=== PATIENT | female | born 2000 | race Caucasian/White ===

== ENCOUNTER → 2020-06-26 | Outpatient (CLI) | payer OTHER ==
[~2020-06-26] VITALS: Ht 177.8 cm; Wt 71.7 kg
[~2020-06-26] MED LIST: DICLOFENAC SODI75 MG PO; NABUMETONE 500500 M2 PO; PROVENTIL HFA6.7 G1 INH; SPRINTEC1 EACH PO; SYMBICORT80 MCG/4.1 INH
--- NOTE | ~2020-06-26 | HPC ---
[facility] [place] [address] PAIN MANAGEMENT CONSULTATION Name: MITCH NARANJO Room #: REG FLORA NunesDella#: [id number] Admission: 06/26/20 Attend Phys: Nathan Colunga DO Discharge: Date of : 00 Report #: [id number] THIS REPORT FOR: cc: Beryl Brewer,Nathan De DO ~ CC: Beryl Colunga DATE OF SERVICE: 06/27/2020 CHIEF COMPLAINT: Left low back pain. HISTORY OF PRESENT ILLNESS: As you know, the patient is a very pleasant 19-year-old female who reports acute onset of low back pain that presented on 06/03/2020. The patient indicates pain intensified from that point forward. 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 She states that her pain is exacerbated with activities during the game specifically with extension of the lumbar spine. She reports that she was placed on rest after she was found to have had a pars interarticularis fracture on imaging study. There was flexion extension films performed, which showed no pathologic movement. She was advised by her orthopedic surgeon to utilize a conservative approach and was placed in a bracing system. She was apparently doing very well after being in the bracing system and with some rest and relaxation. She came out of the bracing system and went right back to her activities and her symptoms reoccurred. She sought evaluation through Neurosurgery, who advised no surgical options at this time. She was sent to our clinic to discuss treatment options. The patient reports her pain today is constant with intermittent exacerbations of symptoms. She describes the pain as shooting, aching, and sharp. She places current pain score 3/10, daily average at 6/10, worst the pain has been is 9/10. The patient states that pain is exacerbated with lumbar extension, improves with lying down, bracing and rest. She has been referred to our service to discuss treatment options to address a nondisplaced pars interarticularis fracture at L5-S1. PAST MEDICAL HISTORY: Asthma. PAST SURGICAL HISTORY: 1. Sclerotherapy 2008, repeat 2010, repeat 2016. 2. Adenoidectomy. SOCIAL HISTORY: The patient denies tobacco, alcohol, IV or illicit drug use. 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 She is accompanied by her mother present in room today. She is not in litigation in regards to pain. [place] [id number] PAIN MANAGEMENT CONSULTATION Name: MITCH NARANJO Room #: REG FLORA TompkinsDellaRileyDella#: [id number] Admission: 06/26/20 Attend Phys: Nathan Colunga DO Discharge: Date of : 00 Report #: [id number] receiving any disability income. REVIEW OF SYSTEMS: Positive for feeling of weakness, wearing corrective eyewear, asthma, wheezing, intermittent numbness and tingling. All other review of systems negative per 12-point review of systems other than those listed in history of present illness. Pain impact score 18/70 indicating mild interference of daily activities secondary to pain. ALLERGIES: No reported drug allergies. CURRENT MEDICATIONS: Albuterol 2 puffs q. 4 hours p.r.n., Sprintec 1 tab per day, Symbicort 80/4.5 mcg inhaled twice daily, nabumetone 500 mg 3 times a day. IMAGING: MRI of the lumbar spine obtained 03/09/2018 shows L1-L2 unremarkable, L2-L3 unremarkable, L3-L4 unremarkable, L4-L5 unremarkable, L5-S1 shows a pars interarticularis fracture on the left with edema and stress reaction. X-ray of the lumbar spine obtained 06/01/2020 shows flexion extension films. There is very mild retrolisthesis of L2 on L3, L3 on L4 and L4 on L5 only in extension. There is no evidence of fracture or abnormal movement. PHYSICAL EXAMINATION: VITAL SIGNS: Blood pressure 114/71, pulse 61, respiratory rate 14 and unlabored. The patient is 100% on room air. Height 5 feet 10 inches tall, weight 158 pounds, BMI calculated 22.7. GENERAL: Well-developed, well-nourished, well-hydrated 19-year-old female appearing stated age. She is in no acute distress, awake, alert and oriented x 3. Current pain score is rated at 3-6/10 depending on activity. HEENT: Normocephalic, atraumatic. Pupils equal, round and reactive to light. Extraocular muscles are intact. Sclerae nonicteric without injection. NEUROLOGIC: Speech is fluent. LUNGS: Clear, no wheeze, rhonchi or rales. CARDIOVASCULAR: Regular. No appreciable gallop, no rub. ABDOMEN: Soft, nontender, nondistended, normoactive bowel sounds. EXTREMITIES: Show no clubbing, no cyanosis, and no edema. MUSCULOSKELETAL: Lower extremity strength equal and symmetrical 5/5, intact to light touch from L1 through S2 dermatomes. Seated straight leg raising negative. Supine straight leg raising negative. Juventino's test is negative. Modified Gaenslen's positive for some axial low back pain with extension. Ankle clonus negative. Babinski is negative. Deep tendon reflexes 2+/4 patella and Achilles. Muscle bulk and tone equal and symmetrical in lower extremities. Gait is normal. Lumbar provocation testing is met with increasing pain only with lumbar extension. No pain noted with rotation, lateral flexion or forward flexion. [facility] [address] [place] [address] PAIN MANAGEMENT CONSULTATION Name: MITCH NARANJO Room #: REG FLORA Rocha#: [id number] Admission: 06/26/20 Attend Phys: Nathan Colunga DO Discharge: Date of : 00 Report #: [id number] ASSESSMENT: 1. L5 pars interarticularis fracture, left side. 2. Chronic axial back pain secondary to #1. 3. Myofascial pain secondary to #1. PLAN: 1. Based on today's physical exam and history the patient has provided, the description the patient uses in regards to pain as well as location of symptoms and the activities exacerbate symptoms, it would appear she is suffering from continued symptomology from the pars interarticularis fracture at L5. The imaging I have available is x-ray imaging obtained 06/01/2020, which shows no pathologic movement in the area, there does not appear to be any significant facet arthropathy nor does ____ to be any concern that the pars interarticularis fracture has worsened. We do have MRI imaging from 2018, which shows the pars interarticularis fracture at L5 with edema. This is likely just after her incident initially occurred. We reviewed this with the patient today. After this review of information, we then discussed treatment options. Following was discussed with the patient today. 2. We discussed physical therapy, stretching exercises and core strengthening as a treatment option. This in conjunction with lumbar bracing and reduction in her activity would be recommended. We discussed medication management utilizing nonsteroidal anti-inflammatories as well as topical agents and myofascial release techniques. We discussed acupuncture therapy as a treatment option as well as chiropractic manipulation with low velocity movements. We discussed surgical options with the patient today. After reviewing the risks and benefits of all proposed treatment options, the patient chose to remain conservative. 3. We are basing the patient's treatment on the [employer] treatment for adolescents with pars interarticularis fractures. Initial treatment should be 8-12 weeks in bracing system with minimizing activities exacerbate symptoms, in this case the patient extension of the lumbar spine. Unfortunately, compliance rate is extremely low with adolescents in this area. Bracing will stabilize the lumbar spine allowing for more effective healing process. The bracing system is primarily to reinforce the importance of restricting activity. We discussed once the bracing had been on for 8-12 weeks, then re-x-raying the area, which is suggested from the [employer] in regards to pars interarticularis fractures. If we see corticalization of the area, then she could return to activities on a limited basis initially and then full return to activities once she has gone through physical therapy. This is recommended as the treatment course for therapy in individuals with pars interarticularis fractures, which are stable in nature without pathologic movement. 4. If the patient does not see improvement in symptoms in 8-12 weeks or we do not see corticalization of the pars interarticularis fracture, treatment repairs would include Edgar wiring, a toscano screw, or pedicle screw and hook, or possibly even a U hakan. Then, followup with Orthopedics would be recommended. These [address] [address] PAIN MANAGEMENT CONSULTATION Name: MITCH NARANJO Room #: REG FLORA Rocha#: [id number] Admission: 06/26/20 Attend Phys: Nathan Colunga, DO Discharge: Date of : 00 Report #: [id number] techniques tend to show significant improvement in symptoms at about 90% of patients based on the [employer] guidelines. I would not recommend surgical options at this point, but certainly this surgical option may be necessary if compliance with more conservative options are not available. 5. Interventional treatments in this patient's case will be of little or no benefit. We discussed the possibility of giving a steroid injection in the area, though this has been noted to slow the healing process and could potentially prolong the fracture healing. We would not recommend initial treatment with steroid exposure in the area. I recommended more conservative option with followup x-ray imaging. If this is ineffective, then surgical options might be necessary. We did discuss radiofrequency lesioning processes. These would not be recommended in this patient's case. Radiofrequency lesioning is a relative contraindication in a 19-year-old individual. 6. We have provided the patient with a request for x-ray imaging in mid July. Assuming the patient does utilize the bracing system as we have requested and limits her activities as requested, x-ray imaging in July should show corticalization of the pars fracture, assuming typical healing process for a 19-year-old female. If that is the case, then an adjustment will be made from bracing from a hard brace to more of a soft type of bracing system. She would then continue with the soft bracing system for another 3-4 weeks and then if continued healing is noted on x-ray imaging at that time, then release back to her normal activities. 7. We wish to thank nurse practitioner, Elli Fernandez, for the opportunity to see the patient in consultation. We are hopeful the information provided will give the patient resolution of her symptoms and allow her to heal from her pars interarticularis fracture exacerbated with continual lumbar extension during volleyball play. By reducing her activities and bracing, the patient and I believe her fracture should repair and her symptoms should improve. Again, we wish to thank you for the opportunity to see the patient in consultation. By: [id number] Nathan Colunga DO /nt
[2020-06-26 13:45] VITALS: BP 114/71
== END ==
LOC: PAIN 06-12 08:42
PROVIDERS: ATTEND Anesthesiology Pain Medicine
DX: S32.059D Unspecified fracture of fifth lumbar vertebra, subsequent encounter for fracture with routine healing (principal); M79.10 Myalgia, unspecified site; J45.909 Unspecified asthma, uncomplicated; Z79.899 Other long term (current) drug therapy